=== PATIENT | male | born 1975 | race Hispanic/Latino ===

== ENCOUNTER 2017-03-10 18:46 | Emergency (ER) | payer BC, OTHER ==
[~2017-03-10 18:46] MED LIST: ASPI-1012 PO; CARV3.12 PO
[2017-03-10] MEDS ORDERED: TETRACAINE HCL 0.5% 4 ML OPHTH SOLN ONE (19:30)
[2017-03-10] MEDS ORDERED: FLUORESCEIN SODIUM 0.6 MG STRIP ONE (19:31)
[2017-03-10] MEDS ORDERED: NA BORATE/BORIC AC/H2O/NACL 120 ML OPHTH IRRIG SOLN ONE (19:31)
== END 2017-03-10 19:53 | disposition home or self-care (01) ==
LOC: EDH 18:46
DX: H10.022 Other mucopurulent conjunctivitis, left eye (principal)